=== PATIENT | female | born 1960 | race Caucasian/White ===

== ENCOUNTER 2019-12-01 01:54 | Day surgery (SDC) | payer BC, SELFPAY ==
[2019-12-01 08:51] VITALS: BP 126/63; PULSE 64; RESP 20; TEMP 36.6; O2SAT 96; BMI 29.7
[2019-12-01 09:25] LABS: Glucose Point of Care 146 (65-105)
--- NOTE | 2019-12-01 09:28 | PM.HPGS ---
History of Present Illness History of Present Illness Consent: Risks, benefits, and alternatives have been discussed and questions answered. Patient agrees to proceed with procedure. Chief complaint: Neoplasm Screening Narrative: Tammi Swartz is a 58 year old female With family history of colon cancer Meds Home Medications and Allergies Home Medications Medication Instructions Recorded Confirmed Type amlodipine 2.5 mg PO QAM 11/24/19 11/24/19 History aspirin [Aspir-81] 81 mg PO DAILY 11/24/19 11/24/19 History cyclobenzaprine 5 mg PO BID PRN 11/24/19 11/24/19 History furosemide 40 mg PO QAM 11/24/19 11/24/19 History glipizide 10 mg PO BID 11/24/19 11/24/19 History insulin aspart U-100 [Novolog 17 unit SUBCUT TID 11/24/19 11/24/19 History Flexpen U-100 Insulin] insulin glargine [Lantus Solostar 35 unit SUBCUT BID 11/24/19 11/24/19 History U-100 Insulin] [id number] 1 cap PO DAILY 11/24/19 11/24/19 History [krill oil] lorazepam 0.5 mg PO BID PRN 11/24/19 11/24/19 History losartan 50 mg PO QAM 11/24/19 11/24/19 History metformin 1,000 mg PO BID 11/24/19 11/24/19 History methyldopa 500 mg PO TID 11/24/19 11/24/19 History metoprolol tartrate 50 mg PO BID 11/24/19 11/24/19 History potassium chloride 10 meq PO QAM 11/24/19 11/24/19 History pravastatin 40 mg PO HS 11/24/19 11/24/19 History zinc acetate 25 mg PO DAILY 11/24/19 11/24/19 History Allergies Allergy/AdvReac Type Severity Reaction Status Date / Time Cantaloupe Allergy Mild SCRATCHY Uncoded 12/01/19 09:08 THROAT HONEYDEW Allergy Mild SCRATCHY Uncoded 12/01/19 09:08 THROAT Vital Signs Vital Signs - 24 hr 12/01/19 08:51 Temperature 36.6 C Pulse Rate 64 Respiratory Rate 20 Blood Pressure 126/63 Pulse Oximetry 96 Exam Resp: Auscultation: clear to auscultation bilaterally Cardio: Rate: regular rate Rhythm: regular rhythm GI: GI Palp: Yes Soft to palpation and No Tenderness to palpation present (GI) Assessment and Plan Assessment and plan (1) Family history of colon cancer: Code(s): Z80.0 - Family history of malignant neoplasm of digestive organs Status: Acute
--- NOTE | 2019-12-01 09:34 | WPDANESEPPF ---
Anes - Initial Pre Proc Eval Procedure: Operation Date: 12/01/19 10:00 Proposed Procedures p Screening Colonoscopy - Markus Radford MD Date/Time: 12/01/19 09:34 Surgeon: Markus Radford MD Pre Op Diagnosis: Neoplasm Screening Patient Data Age: 58 Gender: F Height: 1.6 m Weight: 76.2 kg Last Vital Signs Temp 36.6 C 12/01/19 08:51 Pulse 64 12/01/19 08:51 Resp 20 12/01/19 08:51 BP 126/63 12/01/19 08:51 Pulse Ox 96 12/01/19 08:51 Allergies Allergy/AdvReac Type Severity Reaction Status Date / Time Cantaloupe Allergy Mild SCRATCHY Uncoded 12/01/19 09:08 THROAT HONEYDEW Allergy Mild SCRATCHY Uncoded 12/01/19 09:08 THROAT Home Medications Medication Instructions Recorded Confirmed Type amlodipine 2.5 mg PO QAM 11/24/19 11/24/19 History aspirin [Aspir-81] 81 mg PO DAILY 11/24/19 11/24/19 History cyclobenzaprine 5 mg PO BID PRN 11/24/19 11/24/19 History furosemide 40 mg PO QAM 11/24/19 11/24/19 History glipizide 10 mg PO BID 11/24/19 11/24/19 History insulin aspart U-100 [Novolog 17 unit SUBCUT TID 11/24/19 11/24/19 History Flexpen U-100 Insulin] insulin glargine [Lantus Solostar 35 unit SUBCUT BID 11/24/19 11/24/19 History U-100 Insulin] [id number] 1 cap PO DAILY 11/24/19 11/24/19 History [krill oil] lorazepam 0.5 mg PO BID PRN 11/24/19 11/24/19 History losartan 50 mg PO QAM 11/24/19 11/24/19 History metformin 1,000 mg PO BID 11/24/19 11/24/19 History methyldopa 500 mg PO TID 11/24/19 11/24/19 History metoprolol tartrate 50 mg PO BID 11/24/19 11/24/19 History potassium chloride 10 meq PO QAM 11/24/19 11/24/19 History pravastatin 40 mg PO HS 11/24/19 11/24/19 History zinc acetate 25 mg PO DAILY 11/24/19 11/24/19 History Laboratory Tests 12/01/19 09:23 POC Capillary Glucose 146 mg/dl H mg/dl (65-105) Patient hx anesthesia problems: none Family hx anesthesia problems: none PMFSH Past Medical History Medical History (Updated 12/01/19 @ 09:37 by Felix Graves MD) Anxiety CAD (coronary artery disease) CHF (congestive heart failure) Diabetes HTN (hypertension) Hypercholesterolemia Surgical History Surgical History (Updated 12/01/19 @ 09:37 by Felix Graves MD) Hx of cardiac catheterization ANGIOPLASTY 2018 Hx of coronary artery bypass graft X2 VESSELS 2010 Anes - Eval Final PreProcedure Day of Procedure 12/01/19 09:34 Patient weight: overweight Heart: regular rate and rhythm Lungs: clear to auscultation and normal air movement Airway: Mallampati scale class II Neurological: alert and oriented Last oral intake: >/= 8 hours ASA classification: IV Emergent: no Anesthetic plan: proceed Anesthesia type and monitoring: general GIVS Informed Consent: The patient's anesthetic plan and its attendant risks and benefits were discussed with the patient/family/POA. Questions were solicited and answers provided to the satisfaction of the patient/family/POA.
[2019-12-01 10:16] VITALS: BP 93/49; PULSE 62; RESP 20; O2SAT 96
[2019-12-01] MEDS: LACTATED RINGERS 1,000 ML 150 ML IV CONT (10:23)
[2019-12-01 10:24] LABS: Glucose Point of Care 132 (65-105)
[2019-12-01 10:28] VITALS: BP 95/46; PULSE 67; RESP 23; O2SAT 94
[2019-12-01 10:38] VITALS: BP 90/48; PULSE 69; RESP 17; O2SAT 95
== END 2019-12-01 10:51 | disposition home or self-care (01) ==
PROVIDERS: Referring Provider Obstetrics & Gynecology Gynecology; Visit Provider Internal Medicine Gastroenterology
PROC: 0DJD8ZZ Inspection of Lower Intestinal Tract, Via Natural or Artificial Opening Endoscopic (ICD-10-PCS; CPT 45378; principal; 2019-12-01 10:00)
DX: Z12.11 Encounter for screening for malignant neoplasm of colon (principal); Z80.0 Family history of malignant neoplasm of digestive organs; I11.0 Hypertensive heart disease with heart failure; I50.9 Heart failure, unspecified; I25.10 Atherosclerotic heart disease of native coronary artery without angina pectoris; E78.00 Pure hypercholesterolemia, unspecified; E11.9 Type 2 diabetes mellitus without complications; F41.9 Anxiety disorder, unspecified; Z79.84 Long term (current) use of oral hypoglycemic drugs; Z79.4 Long term (current) use of insulin; Z79.82 Long term (current) use of aspirin; Z95.1 Presence of aortocoronary bypass graft
CPT/HCPCS: 45378; J7120

== ENCOUNTER 2021-05-04 00:49 | Day surgery (SDC) | payer OTHER, SELFPAY ==
[2021-04-27 16:47] VITALS: BMI 29.2
[2021-05-04 09:16] VITALS: BP 152/75; PULSE 62; RESP 20; TEMP 36.7; O2SAT 99
[2021-05-04] MEDS: ACETAMINOPHEN 500 MG TABLET 1000 MG PO (09:25)
[2021-05-04] MEDS: LACTATED RINGERS 1,000 ML 30 ML IV CONT (09:30)
[2021-05-04 10:04] LABS: Glucose Point of Care 157 mg/dl (65-105)
--- NOTE | 2021-05-04 10:08 | WPDANESEPPF ---
Anes - Initial Pre Proc Eval Procedure: Operation Date: 05/04/21 11:00 Proposed Procedures p Hysteroscopy Dilation and Curettage - Jennyfer Mccloud MD Date/Time: 05/04/21 10:08 Surgeon: Jennyfer Mccloud MD Pre Op Diagnosis: Post menopausal bleeding Patient Data Age: 60 Gender: F Height: 1.6 m Weight: 76.15 kg Last Vital Signs Temp 36.7 C 05/04/21 09:16 Pulse 62 05/04/21 09:16 Resp 20 05/04/21 09:16 BP 152/75 H 05/04/21 09:16 Pulse Ox 99 05/04/21 09:16 Allergies Allergy/AdvReac Type Severity Reaction Status Date / Time Cantaloupe Allergy Mild SCRATCHY Uncoded 04/27/21 17:26 THROAT HONEYDEW Allergy Mild SCRATCHY Uncoded 04/27/21 17:26 THROAT Home Medications Medication Instructions Recorded Confirmed Type Lantus Solostar U-100 Insulin 45 unit SUBCUT BID 11/24/19 05/04/21 History amlodipine 2.5 mg PO QAM 11/24/19 05/04/21 History aspirin [Aspir-81] 81 mg PO DAILY 11/24/19 05/04/21 History cyclobenzaprine 5 mg PO BID PRN 11/24/19 05/04/21 History furosemide 20 mg PO QAM 11/24/19 05/04/21 History insulin aspart U-100 [Novolog 17 unit SUBCUT TID 11/24/19 05/04/21 History Flexpen U-100 Insulin] [id number] 1 cap PO DAILY 11/24/19 05/04/21 History [krill oil] lorazepam 0.5 mg PO BID PRN 11/24/19 05/04/21 History losartan 50 mg PO QAM 11/24/19 05/04/21 History metformin 1,000 mg PO BID 11/24/19 05/04/21 History metoprolol tartrate 50 mg PO BID 11/24/19 05/04/21 History potassium chloride 10 meq PO QAM 11/24/19 05/04/21 History pravastatin 40 mg PO HS 11/24/19 05/04/21 History zinc acetate 25 mg PO DAILY 11/24/19 05/04/21 History Laboratory Tests 05/04/21 09:38 POC Capillary Glucose 157 mg/dl H mg/dl (65-105) Patient hx anesthesia problems: none Family hx anesthesia problems: none PMFSH Past Medical History Medical History Anxiety CAD (coronary artery disease) CHF (congestive heart failure) Diabetes HTN (hypertension) Hypercholesterolemia Surgical History Surgical History Hx of cardiac catheterization ANGIOPLASTY 2018 Hx of coronary artery bypass graft X2 VESSELS 2010 Social History Social History Smoking status: Never smoker Alcohol intake: never Substance use: never Substance use type: does not use Living arrangements: with family Gender identity (if verbalized by the patient): Female Sexual Orientation (if Verbalized by the Patient): Straight or Heterosexual Spiritual care concerns: No Anes - Eval Final PreProcedure Day of Procedure 05/04/21 10:08 Patient weight: overweight Heart: regular rate and rhythm Lungs: clear to auscultation Airway: Mallampati scale class II Neurological: alert and oriented Last oral intake: >/= 8 hours ASA classification: III Emergent: no Anesthetic plan: proceed Anesthesia type and monitoring: general GIVS and standard monitoring Informed Consent: The patient's anesthetic plan and its attendant risks and benefits were discussed with the patient/family/POA. Questions were solicited and answers provided to the satisfaction of the patient/family/POA.
--- NOTE | 2021-05-04 10:29 | PM.HPGS ---
History of Present Illness History of Present Illness Consent: Risks, benefits, and alternatives have been discussed and questions answered. Patient agrees to proceed with procedure. Chief complaint: Post menopausal bleeding Narrative: Tammi Swartz is a 60 year old female with postmenopausal bleeding and endometrium thickened at 14 mm. Recommend hysteroscopy with D&C. Risks of infection, bleeding, perforation, and possible pathology reviewed. Agrees to proceed. Review of Systems Review of Systems: Narrative: not repeated day of surgery; patient states no changes in status PMFSH Past Medical History Medical History Anxiety CAD (coronary artery disease) CHF (congestive heart failure) Diabetes HTN (hypertension) Hypercholesterolemia Surgical History Surgical History Hx of cardiac catheterization ANGIOPLASTY 2018 Hx of coronary artery bypass graft X2 VESSELS 2009 Social History Social History Smoking status: Never smoker Alcohol intake: never Substance use: never Substance use type: does not use Living arrangements: with family Gender identity (if verbalized by the patient): Female Sexual Orientation (if Verbalized by the Patient): Straight or Heterosexual Spiritual care concerns: No Meds Home Medications and Allergies Home Medications Medication Instructions Recorded Confirmed Type Lantus Solostar U-100 Insulin 45 unit SUBCUT BID 11/24/19 05/04/21 History amlodipine 2.5 mg PO QAM 11/24/19 05/04/21 History aspirin [Aspir-81] 81 mg PO DAILY 11/24/19 05/04/21 History cyclobenzaprine 5 mg PO BID PRN 11/24/19 05/04/21 History furosemide 20 mg PO QAM 11/24/19 05/04/21 History insulin aspart U-100 [Novolog 17 unit SUBCUT TID 11/24/19 05/04/21 History Flexpen U-100 Insulin] [id number] 1 cap PO DAILY 11/24/19 05/04/21 History [krill oil] lorazepam 0.5 mg PO BID PRN 11/24/19 05/04/21 History losartan 50 mg PO QAM 11/24/19 05/04/21 History metformin 1,000 mg PO BID 11/24/19 05/04/21 History metoprolol tartrate 50 mg PO BID 11/24/19 05/04/21 History potassium chloride 10 meq PO QAM 11/24/19 05/04/21 History pravastatin 40 mg PO HS 11/24/19 05/04/21 History zinc acetate 25 mg PO DAILY 11/24/19 05/04/21 History Allergies Allergy/AdvReac Type Severity Reaction Status Date / Time Cantaloupe Allergy Mild SCRATCHY Uncoded 04/27/21 17:26 THROAT HONEYDEW Allergy Mild SCRATCHY Uncoded 04/27/21 17:26 THROAT Vital Signs Vital Signs - 24 hr 05/04/21 09:16 Temperature 98.0 F Pulse Rate 62 Respiratory Rate 20 Blood Pressure 152/75 H Pulse Oximetry 99 Exam Const: General: comfortable and no acute distress Resp: Effort & Inspection: normal respiratory effort : External Female Exam: normal external appearance Speculum Exam - Vagina: normal appearance of the vagina Speculum Exam - Cervix: normal appearance of the cervix Bimanual exam- vagina & uterus: normal bimanual exam Bimanual Exam- Adnexa, other: normal adnexae Assessment and Plan Assessment and plan (1) Post-menopausal bleeding: Code(s): N95.0 - Postmenopausal bleeding Status: Acute Assessment and Plan: plan to proceed with hysteroscopy with D&C medical clearance obtained
--- NOTE | 2021-05-04 10:33 | WPDHPUPDATE1 ---
History and Physical Update Update Date/Time: 05/04/21 10:33 History and Physical has been reviewed, including an updated exam of the patient. There are NO changes in the patient's condition. Risks, benefits, and alternatives have been discussed and questions answered. Patient agrees to proceed with procedure.
--- NOTE | 2021-05-04 11:16 | W.PM.PROC2 ---
Procedure Note - Detailed Date of Procedure 05/04/21 Pre-op Diagnosis Post menopausal bleeding Post-op Diagnosis same Procedure Performed D and C hysteroscopy with MyoSure resection Surgeon Jennyfer Mccloud MD Anesthesia MAC Findings cervix is stenotic; uterus sounds to 8cm; there are 2 large polyps the smaller is very vascular and calcified the larger is smooth and fills the entire upper cavity ; the remainder of the endometrium appears atrophic Description of Procedure the patient was taken to the operating room and placed under anesthesia in the dorsal lithotomy position and she is prepped and draped in the usual sterile fashion. the cervix was noted to be stenotic and the os Finders are used. The uterus is sounded to 8cm. The cervix is serially dilated with Hegars. The diagnostic hysteroscope was placed with the above-stated findings. The MyoSure device is opened and placed under direct visualization both polyps are removed in their entirety. the hysteroscope was removed and the medium sharp curette used with minimal material obtained. All instruments are removed. Sponge, needle, and instrument counts are correct per the OR staff. Estimated Blood Loss 5 Drains No Packing No Pathology yes ( Endometrial curettings and shavings) Complications No immediate complications Condition stable Disposition PACU
[2021-05-04] MEDS: KETOROLAC 30 MG/ML VIAL (*BKC) 15 MG IV PUSH (11:18)
[2021-05-04 11:25] VITALS: BP 122/65; PULSE 58; RESP 15; O2SAT 98
[2021-05-04 11:43] LABS: Glucose Point of Care 141 mg/dl (65-105)
[2021-05-04 12:00] VITALS: BP 89/51; PULSE 47; RESP 16
[2021-05-04 12:30] VITALS: BP 107/58; PULSE 50; RESP 18
[2021-05-04 13:00] VITALS: BP 121/54; PULSE 55; RESP 18
--- NOTE | 2021-05-04 13:55 | SUR.PHASEII ---
1200; PT RETURNED FROM RESTROOM, PT SLIGHTLY UNSTEADY. C/O CRAMPING AT 6-7/10. BACK TO ROOM, IN RECLINER. ABDOMEN SOFT, SM AMT VAG FLOW TO PERIPAD. SBP 90-. IVF INCREASED. 1225; PT AWAKE AND ALERT. STATES CRAMPING MUCH BETTER NOW AT 3/10 AND TOLERABLE. PT EATING CRACKERS AND DRINKING DIET WHITE SODA. SPOUSE AT BEDSIDE. 1300; PT AWAKE AND ALERT. STATES MILD CRAMPING, TOLERABLE. READY TO GO HOME. MEETS DISCHARGE CRITERIA.
== END 2021-05-04 13:20 | disposition home or self-care (01) ==
PROVIDERS: Visit Provider Obstetrics & Gynecology Gynecology
PROC: 0U5B8ZZ Destruction of Endometrium, Via Natural or Artificial Opening Endoscopic (ICD-10-PCS; CPT 58563; principal; 2021-05-04 11:00)
DX: N95.0 Postmenopausal bleeding (principal); N84.0 Polyp of corpus uteri; F41.9 Anxiety disorder, unspecified; I25.10 Atherosclerotic heart disease of native coronary artery without angina pectoris; I11.0 Hypertensive heart disease with heart failure; I50.9 Heart failure, unspecified; E78.00 Pure hypercholesterolemia, unspecified; E11.9 Type 2 diabetes mellitus without complications; Z95.1 Presence of aortocoronary bypass graft; Z79.82 Long term (current) use of aspirin; Z79.4 Long term (current) use of insulin
CPT/HCPCS: 58558; 82948; 88305; A9270; J1885; J2250; J2704; J3010; J7030; J7120

== ENCOUNTER 2021-07-09 09:42 | Outpatient (CLI) | payer OTHER, SELFPAY ==
--- NOTE | ~2021-07-09 | MR_ITS ---
EXAMINATION: MR pelvis wo/w con INDICATION: Adnexal mass with increase in size TECHNIQUE: Coronal SSFSE ARC, Coronal, Axial, and Sagittal T2 FRFSE small [id number]-lo-[id number], Coronal 2D F IESTA FatSat, Axial SSFSE BH ARC, Axial 3D DualEcho BH, Axial STIR, Axial DWI b=500, pre and dynamic postcontrast Axial LAVA ARC COMPARISON: None available CONTRAST: Multihance, 15 cc FINDINGS: There is a 6.1 x 4.5 cm cystic lesion of the right adnexa. No peripheral nodularity or abno rmal internal enhancement is identified. The left ovary is unremarkable in appearance. There are no p athologically enlarged pelvic lymph nodes. No dilated loops of bowel are identified. A small cystocel e is noted. The visualized osseous structures are unremarkable The gallbladder is mildly distended. IMPRESSION: 1. Right adnexal cyst measuring up to 6.1 cm. In the absence of available prior imaging to assess for interval change, sonographic follow-up would be recommended in one year based on this examination. 2. Small cystocele. 3. Mild gallbladder distention, likely due to fasting state. Correlate for right upper quadrant pain. Reviewed, dictated and finalized at location A. IMPRESSION: 1. Right adnexal cyst measuring up to 6.1 cm. In the absence of available prior imaging to assess for interval change, sonographic follow-up would be recommen ded in one year based on this examination. 2. Small cystocele. 3. Mild gallbladder distention, likely due to fasting state. Correlate for righ t upper quadrant pain.
[2021-07-09 10:25] LABS: Estimated Glomerular Filt Rate > 60
== END 2021-07-09 09:43 | disposition home or self-care (01) ==
LOC: ANHIMG 09:46
PROVIDERS: Visit Provider Obstetrics & Gynecology Gynecology
DX: R93.5 Abnormal findings on diagnostic imaging of other abdominal regions, including retroperitoneum (principal); N83.8 Other noninflammatory disorders of ovary, fallopian tube and broad ligament; N81.10 Cystocele, unspecified; R93.3 Abnormal findings on diagnostic imaging of other parts of digestive tract
CPT/HCPCS: 72197; A9577

== ENCOUNTER 2025-09-05 00:11 | Day surgery (SDC) | payer OTHER, MEDICARE, SELFPAY ==
--- OUTSIDE RECORDS SUMMARY | 2020-05-11 23:00 | XMS_ITS | Encounter Summary ---
Author Organization [facility] Healthcare Address [address] [place] [id number] Care Team Providers Care Prehemmer Name Role Phone Unavailable Primary Care Provider Unavailabl e Reason for Visit * Diagnostic Imaging (Routine) - Closed Specialty Diagnoses / Procedures Referred By Contac t Referred To Contact Procedures Breast Imaging Screening Outside Reference Aft, Laureen Fofana MD PhD [address] [place] [id number] Phone: tel: fax: Referral ID Status Reason Start Date Expiration Date Visits Re quested Visits Authorized [id number] Closed 02/24/2024 03/25/2025 1 1 Encounter Details Date Type Department Care Team (Late st Contact Info) Description 05/12/2020 Hospital Encounter [facility] [address] [place] [phone] Social History Tobacco Use Types Packs/Day Years Used Date Smoking Tobacco: Never Smokeless Tobacco: Never AUDIT-C Answer Date Recorded Q1: How often do you have a drink containing alc ohol? Monthly or less 06/15/2024 Q2: How many drinks containi ng alcohol do you have on a typical day when you are drinking? 1 or 2 06/15/2024 Q3: How often do you have si x or more drinks on one occasion? Never 06/15/2024 Personal Safety Answer Date Recorded Have you ever been in or are you currently in a harmful physical or emotional relationship or is someone making you feel afraid or unsafe? Denies 06/15/2024 Comments Unknown Sex and Gender Information Value Date Recorded Sex Assigned at Not on file Legal Sex Female 4:20 PM CDT Gender Identity Not on file Sexual Orientation Not on file documented as of this encounter Functional Status * Difference in Last Two Carlton Scores Answer Date of Assessment Author 0 06/15/2024 5:05 PM CDT Olivia Dumont RN * Question Answer Date of Assessment Author MAP (mmHg) 81 06/15/2024 6:10 PM CDT Taryn Dumont RN * Luis Fall Risk Question Answer Date of Assessment Author History of Falling 0 06/15/2024 5:17 PM CDT Taryn Dumont RN Secondary Diagnosis 0 06/15/2024 5:17 PM Taryn Finch RN Ambulatory Aids 0 06/15/2024 5:17 PM CDT Taryn Starkey ams, RN Intravenous Therapy/Heparin/Saline Lock 20 06/15/2024 5:17 PM CDT Olivia Dumont RN Gait/Transferring 0 06/15/2024 5:17 PM CDT Taryn Dumont RN Mental Status 0 06/15/2024 5:17 PM CDT Taryn Karimi RN Luis Fall Risk Score (Score >= 45 places fall precaution order) 20 06/15/2024 5:17 PM ADAMT Taryn Dumont RN Prior Fall Event (Autopopulated from EMR) None found 06/15/2024 5:17 PM CDT Floridalma Dumont, KISHORE * Carlton Scale Question Answer Date of Assessment Author Sensory Perceptions 4 06/15/2024 5:05 PM Taryn Finch RN Moisture 4 06/15/2024 5:05 PM CDT Taryn Dumont RN Activity 3 06/15/2024 5:05 PM ADAMT Taryn Dumont RN Mobility 4 06/15/2024 5:05 PM ADAMT Taryn Dumont RN Nutrition 3 06/15/2024 5:05 PM ADAMT Taryn Dumont RN Friction and Shear 3 06/15/2024 5:05 PM ADAMT Taryn Dumont RN Carlton Scale Score 21 06/15/2024 5:05 PM Taryn Oakes RN * Fall Risk Interventions Question Answer Date of Assessment Author All Low Fall Interventions Applied Yes 06/15/2024 5:17 PM Taryn Oakes RN All Moderate Fall Interventions Applied No 06/15/2024 5:17 PM Taryn Oakes RN All Moderate Fall Risk Interventions EXCEPT: Gait belt at bedside;PT eval requested or obtained;OT eval requested or obtained 06/15/2024 5:17 PM Taryn Oakes RN Reason For Exception(s) pacu 06/15/20 5:17 PM Taryn Oakes RN * Pressure Injury Prevention Question Answer Date of Assessment Author Pressure Ulcer Prevention Interventions Keep skin clean and dry (Sensory Perception/Moistur e) 06/15/2024 5:05 PM Taryn Oakes RN * AUDIT-C Score Answer Date of Assessment Author 1 06/15/2024 8:57 AM Kita Geronimo RN * Alcohol Use Question Answer Date of Assessment Author Q1: How often do you have a drink containing alcohol? Monthly or less 06/15/2024 8:57 AM Lucia Geronimo ra, RN Q2: How many drinks containing alcohol do you have on a typical day when you are drinking? 1 or 2 06/15/2024 8:57 AM Lucia Geronimo ra, RN Q3: How often do you have six or more drinks on one occasion? Never 06/15/2024 8:57 AM Lucia Geronimo ra, RN * Integumentary Question Answer Date of Assessment Author Skin Color Appropriate for ethnicity 06/15/2024 5:05 PM Taryn Oakes RN Skin Condition/Temp Warm;Dry 06/15/2024 5 :05 PM Taryn Oakes RN Skin Integrity Surgical incision 06/15/2024 5:0 5 PM Taryn Oakes RN Skin Turgor Non-tenting 06/15/2024 5:05 PM Taryn Oakes RN Integumentary Additional Assessments Yes-Carlton 06/15/2024 5:05 PM Taryn Oakes RN Integumentary (WDL) X 06/15/2024 5 :05 PM CDT Taryn Dumont RN Skin Location L breast 06/15/2024 5:05 PM CDT Taryn Dumont RN * Carlton Scale Question Answer Date of Assessment Author Carlton Scale Used Carlton 06/15/2024 8:59 AM CDT Kita Palmer RN * Fall Risk Interventions Question Answer Date of Assessment Author All Low Fall Interventions Applied Yes 06/15/2024 5:17 PM CDT Taryn Dumont RN All Moderate Fall Interventions Applied No 06/15/2024 5:17 PM ADAMT Taryn Dumont RN All Moderate Fall Risk Interventions EXCEPT: Gait belt at bedside;PT eval requested or obtained;OT eval requested or obtained 06/15/2024 5:17 PM ADAMT Taryn Dumont RN Reason For Exception(s) pacu 06/15/20 5:17 PM CDT Taryn Dumont RN * Assistive Devices Question Answer Date of Assessment Author Assistive Devices/DME Eyeglasses 06/03/2024 3:00 PM CDT Adelina Forrest RN * Question Answer Date of Assessment Author Bed In Lowest Position Yes 06/15/2024 5:03 PM ADAMT Taryn Dumont RN Bed Wheels Locked Yes 06/15/2024 5:03 PM ADAMT Taryn Dumont RN documented as of this encounter Mental Status * Question Answer Entry Date Author Level of Consciousness Drowsy;Lethargic 06/15/20 5:05 PM ADAMT Taryn Dumont RN Neuro (WDL) X 06/15/2024 5:05 PM CDT Taryn Dumont RN documented in this encounter Plan of Treatment Not on file documented as of this encounter Procedures Procedure Name Priority Date/Time Associated Diagnosis Comments BREAST IMAGING MG SCREENING OUTSIDE REFERENCE Routine 05/12/2020 12:00 AM CDT documented in this encounter Results * Breast Imaging Screening Outside Reference (05/12/2020 12:00 AM CDT) Impressions [facility] - 02/24/2024 3:38 PM CDT These images are for Reference purposes only and have not been reviewed by [facility]. There will be no report generated by a [facility] Radiologist. Narrative [facility] - 02/24/2024 3:38 PM CDT EXAMINATION: Images For Reference Purposes Only us Laureen Cox MD PhD IMG MAMMO PROCEDURES Final Result [facility] documented in this encounter Visit Diagnoses Not on filedocumented in this encounter
--- NOTE | 2025-08-29 13:14 | PC.NURSE ---
[facility] has started construction of its new state of the art ER which will open Spring 2026. With this, we anticipate parking may be a challenge for some our surgical patients and families. Parking spaces are limited but are available for all Surgical, obstetrics, and ER patients sharing this lot. If you arrive and find you are having a hard time finding a parking space, please note that we understand the challenges, please drive around the hospital and park near Hospital Entrance 1. When you enter this entrance, you can ask a volunteer to direct or take you back to the surgical waiting area to check in. We appreciate everyone?s understanding of these expected challenges while we build for your future. Report to the Outpatient Waiting Room, entrance under the green pavilion located off [address], at time __11:45 AM on date _09/05/25 . Planned Procedure Time: _1:45 PM .? Time changes happen often and if your time is changed the preop area will call you the afternoon before. - You and your visitor will be asked to self-screen and do not enter if you have any COVID symptoms. Please call surgeon if you need to reschedule. - A mask is optional within the hospital at this time. Patients may have clear liquids (water, carbonated beverages, clear teas, apple juice) until 3 hours prior to surgery( 10:45 AM) with a maximum of 20 ounces. - No food from midnight until time of surgery and no smoking, or chewing tobacco (or any form of nicotine). No chewing gum, candy or mints. Take only the following medications with a SIP of water on the morning of surgery: __DILTIAZEM, TAKE 1/2 OF AM INSULIN,ISOSORBIDE DO NOT STOP ANY OF YOUR OTHER PRESCRIPTION MEDICATIONS PRIOR TO SURGERY EXCEPT THE FOLLOWING Hold all vitamins and supplements for 3 days per anesthesiologist.LAST DOSE 09/01/25 Medications to discontinue per physician ____ELIQUIS PER DR JADE_PT TO CALL Please no make-up, nail khmer, hairspray, perfume, deodorant, or body powder the day of surgery.? No jewelry (including any body piercings) or valuables the day of surgery, leave them at home.? Please take a shower or bath the night before, or the morning of, surgery with an antibacterial soap.? Wear comfortable, loose fitting clothing.? Children are encouraged to wear pajamas. - Jewelry must be removed prior to entering the operating room.? Rings and piercings that are not removed may be cut off. - The hospital will not accept responsibility for valuables.? - Please leave all valuables, including medications, at home the day of surgery. If you are going home after surgery, a licensed cpr ambulance driver must drive you home.? - NO public transportation without another adult if you receive anesthesia. - We recommend that an adult stay with you for 24 hours following discharge. - We also recommend that you do not drive, make important decision, drink alcoholic beverages, or take any drugs that were not prescribed by your health care provider for at least 24 hours after your discharge time. Follow any additional instructions given to you from your surgeon. Telephone instructions given to __PATIENT and asked if any additional questions and then verbalized understanding. Patient advised to call surgeon office or pre surgery nurse liaison [phone] if any additional questions.
[2025-08-29 14:01] VITALS: BMI 30.7
--- OUTSIDE RECORDS SUMMARY | 2025-09-05 00:13 | XMS_ITS | Encounter Summary ---
Author Organization [facility] Address [address] [place] [address] Phone Care Team Providers Care Buffing Wheel Raker Name Role Phone Jennyfer Mccloud MD Unavailable [phone] Usha Coreas MD Primary Care Provider [phone] Encounter Details Date Type Department Care Team (Late st Contact Info) Description 03/02/2024 Orders Only [facility] Surgery [address] [facility] [address] Advanced [facility] 5th [place] [address] [place] [id number] Aft, Laureen Fofana MD PhD [address] [place] [address] Social History Tobacco Use Types Packs/Day Years Used Date Smoking Tobacco: Never Assessed Personal Safety Answer Date Recorded Getting School Help Needed Not on file 02/08 Comments Unknown Sex and Gender Information Value Date Recorded Sex Assigned at Not on file Legal Sex Female 4:20 PM CDT Gender Identity Not on file Sexual Orientation Not on file documented as of this encounter Plan of Treatment Not on file documented as of this encounter Visit Diagnoses Not on filedocumented in this encounter Care Teams Buffing Wheel Raker Relationship Specialty Start Date End Date Usha Coreas MD [address] [place] [id number] PCP - General Family Medicine 02/19/24 Jennyfer Mccloud MD [address] [place] [address] Referring Physician Gynecology 02/09/24 documented as of this encounter
--- OUTSIDE RECORDS SUMMARY | 2025-09-05 00:13 | XMS_ITS | Clinical Summary ---
Author Organization [facility] Address [address] [place] [id number] Care Team Providers Care Spare Hand Carding Name Role Phone Jennyfer Mccloud MD Unavailable [phone] Usha Coreas MD Primary Care Provider [phone] Allergies Active Allergy Reactions Criticality Noted Date Comments Lisinopril Cough Low 04/06/2021 Other Unknown 12/19/2017 [place] Medications KRILL OIL ORALIndications: supplement Take 300 mg by mouth supply specialist before breakfast Active zinc gluconate 50 mg tabletIndication s:supplement Take 1 tablet (50 mg total) by mouth supply specialist before breakfast Active nitroglycerin (NITROSTAT) 0.[address] 1 tablet (0.4 mg total) under the tongue every 5 (five) minutes as needed 2 Active dilTIAZem (CARDIZEM) 60 mg tabletIndication s:hypertension Take 1 tablet (60 mg total) by mouth supply specialist before breakfast Active metoprolol XL (TOPROL-XL) 100 mg 24 hr tabletIndication s:hypertension Take 1 tablet (100 mg total) by mouth supply specialist before breakfast Active isosorbide mononitrate ER (IMDUR) 60 mg 24 hr tabletIndication s:prevention of anginal pain in coronary artery disease Take 1 tablet (60 mg total) by mouth supply specialist before breakfast 4 Active furosemide (LASIX) 20 mg tabletIndication s:hypertension Take 1 tablet (20 mg total) by mouth supply specialist before breakfast Active Jardiance 10 mg tabletIndication s:type 2 diabetes mellitus Take 2.5 tablets (25 mg total) by mouth supply specialist before breakfast 4 Active Dexcom G6 Sensor device USE TO TEST BLOOD SUGAR. CHANGE EVERY 10 DAYS 4 Active Dexcom G6 Transmitter device as directed 4 Active losartan (COZAAR) 100 mg tabletIndication s:hypertension Take 1 tablet (100 mg total) by mouth supply specialist before breakfast Active metFORMIN (GLUCOPHAGE) 500 mg tabletIndication s:type 2 diabetes mellitus Take 2 tablets (1,000 mg total) by mouth 2 (two) times a day with meals Active potassium chloride ER 10 mEq CR tabletIndication s:hypokalemia prevention Take 1 tablet/capsule (10 mEq total) by mouth supply specialist before breakfast Active pravastatin (PRAVACHOL) 40 mg tabletIndication s:hyperlipidemia Take 1 tablet (40 mg total) by mouth nightly Active NovoLOG 100 unit/mL (3 mL) pen for injectionIndicat ions:type 2 diabetes mellitus Inject 30 Units under the skin 3 (three) times a day with meals 4 Active fluticasone propionate (FLONASE) 50 mcg/actuation nasal sprayIndications :Allergic Conjunctivitis,A llergic Rhinitis Administer 1 spray into each nostril supply specialist before breakfast Active LANTUS 100 unit/mL (3 mL) pen for injectionIndicat ions:DM Inject 50 Units under the skin 2 (two) times a day 50 units in am & 55 units in pm Active Eliquis 5 mg tablet Take 1 tablet (5 mg total) by mouth 2 (two) times a day 4 Active oxyCODONE (ROXICODONE) 5 mg immediate release tabletIndication s:Pain Take 1 tablet (5 mg total) by mouth every 4 (four) hours as needed for pain 3 tablet 4 Active Active Problems Problem Noted Date Diagnosed Date Breast lesion on mammography 03/08/2024 Immunizations Immunization Administration Dates Next Due Influenza, Quadrivalent, Yakelin l Culture-based MDCK, Preservative Free, Antibiotic Free, Intramuscular 11/23/2017 Influenza, Quadrivalent, Rec ombinant, Egg Free, Preservative Free, Intramuscular 09/21/2019 Influenza, Quadrivalent, Spl it, Preservative Free, Intramuscular 09/19/2020,09/08/2018,08/17/2015 Pneumococcal Polysaccharide PPV23 05/12/2020 Surgical History Surgery Date Site/Laterality Comments OTHER SURGICAL HISTORY [facility] ;2021 ANGIOPLASTY 2015; in heart OTHER SURGICAL HISTORY 10/27/2009 - 10/26/2010 double bypass in heart; 2009 BIOPSY ankle;1993 BREAST BIOPSY 03/08/2024 Left BREAST BIOPSY 03/12/2024 Left Medical History Medical History Date Comments Hypertension Heart disease Diabetes PONV (postoperative nausea and vomiting) Family History Medical History Relation Name Comments Colon cancer Father Anesthesia problems Neg Hx Relation Name Status Comments Father Social History Tobacco Use Types Packs/Day Years Used Date Smoking Tobacco: Never Smokeless Tobacco: Never Tobacco Cessation:Counseling Given: Not Answered AUDIT-C Answer Date Recorded Q1: How often [...] on file Sexual Orientation Not on file Last Filed Vital Signs Vital Sign Reading Time Taken Comments Blood Pressure 140/63 06/15/2024 6:10 PM CDT Pulse 65 06/15/2024 6:10 PM CDT Temperature 36.1 C (97 F) 06/15/2024 5:50 PM CDT Respiratory Rate 18 06/15/2024 6:10 PM CDT Oxygen Saturation 94% 06/15/2024 6:10 PM CDT Inhaled Oxygen Concentration - - Weight 79.5 kg (175 lb 3.2 oz) 01/05/2025 11:27 AM CDT Height 160 cm (5' 3) 01/05/2025 11:27 AM CDT Body Mass Index 31.04 01/05/2025 11:27 AM CDT Plan of Treatment Health Maintenance Due Date Last Done Comments Breast Cancer Screening-Mammogram 1959 Cervical Cancer Screening 1959 Colon Cancer Screening-Colonoscopy 1959 Depression Screening 1959 Hepatitis C Screening 1959 Osteoporosis Screening-Bone Density Scan 1959 DTaP/Tdap/Td Vaccine (1 - Tdap) 1970 Hepatitis B Screening 1977 Zoster Vaccine (1 of 2) 2009 Pneumococcal vaccine 65+ (2 of 2 - PCV) 05/12/2021 05/12/2020 Well Visit 65+ 2024 Fall Risk Assessment 06/15/2025 06/15/2024 Covid-19 Vaccine (5 - 2024-2 6 season) 2025 12/19/2022, 09/17/2021, 02/02/2021, Additional history exists Influenza Vaccine (#1) 2025 , 09/21/2019, 09/08/2018, Additional history exists Medical Devices Implanted Type Area Stacker Attendant Device Identifier Shelf Expiration Date Model / Serial / Lot Bard Peripheral Vascular Ultraclip Bard 17ga 10cm 2 Trigger Permanent Ultrasound [id number] - [id number] Implanted:Qty: 1 on 03/08/2024 by Juana Dc MD at [facility] Left: Breast Bard Peripheral Vascular [id number] / / [employer] Trimark Mri Guided Rigid Deployment Device Cork Marker Breast Trimark Td 13-Mr - [id number] Implanted:Qty: 1 on 03/12/2024 at [facility] Left: Breast [employer] [id number] 12/02/2024 TRIMARK TD 13-MR / / [id number] Bard Peripheral Vascular Ghiatas 20ga 20cm 9cm Beaded Needle Breast Wire Localization [id number] - [id number] Implanted:Qty: 1 on 06/15/2024 at [facility] Left: Breast Bard Peripheral Vascular [id number] / / Bard Peripheral Vascular Ghiatas 20ga 20cm 9cm Beaded Needle Breast Wire Localization 34645 - [id number] Implanted:Qty: 1 on 06/15/2024 at [facility] Left: Breast Bard Peripheral Vascular [id number] / / Insurance [facility] [employer] [facility] [employer] Care Teams Spare Hand Carding Relationship Specialty Start Date End Date Usha Coreas MD [address] [address] PCP - General Family Medicine 02/19/24 Jennyfer Mccloud MD [address] [place] [address] Referring Physician Gynecology 02/09/24
--- OUTSIDE RECORDS SUMMARY | 2025-09-05 00:14 | XMS_ITS | Data Portability ---
Author Organization [facility], [address] Neurology ([place]) Address [address] 4th [place] [address] Care Team Providers Care Spinner Frame Name Role Phone LUBA ELIZALDE Primary Care Provider DANIAL MCDANIEL Point Of Care Technician Assessment Encounter Date Assessment Date Assessment LastModified by Organization Details LastModified Time 03/02/2025 03/02/2025 Ms. Swartz has PMH of : -HTN, HLD, IDDM II -CAD s/p CABG x2 VIA STERNOTOMY by Dr. Jean-Baptiste (12/2009) -Significant single vessel CAD, consult w/ Dr. Jean-Baptiste (12/2009), Double vessel CAD (03/2010), LAD 100%, LCx 100%, SVG to OM patent, MALDONADO to LAD patent (12/2011), Intervention; MALDONADO to LAD patent, SVG to OM patent. Mid graft had ectasia (11/2014), CAD s/p PCI MALDONADO to LAD patent, SVG to OM insertion site 99% disease, Severe SVG to OM disease treated by PCI (05/2017), Last intervention (12/2022) -LVEF 50% mild thickening of mitral ritu leaflets, mild MR, inferior vena cava shows >50% collapse with respiration consistent with normal right atrial pressure (02/2022) -AFib on Eliquis and diltiazem O ther clinical history significant for: chronic depression, diabetic peripheral neuropathy, steatotic liver disease S ocial history: , retired, never a smoker This visit: Patient presents for follow-up visit. She is accompanied by her . She has been experiencing episodes of chest tightness with exertion and emotional stress. She also has concerns regarding shortness of breath. She has no edema. She has had a couple episodes of heart racing with high blood pressure at home. She has NYHA class II shortness of breath on exertion and decreased exercise tolerance. Last visit: (saw SA 08/2024) The patient is here for follow-up visit. She is accomapined by her . She has diagnosis of breast ca and has undergone lumpetomy and planning for radiation. C ardiovascular studies summary: Echocardiogram: 02/2022 Est LVEF is 50-55%. LV diastolic function is abnormal (grade 2-pseudonormal pattern. RV systolic function is normal. Mild thickening of mitral valve leaflets. Mild mitral regurgitation. Inferior vena cava shows >50% collapse with respiration consistent with normal right atrial pressure. C ardiac Cath: 12/2022 LVEDP was normal. 99% pLAD, 100% mLAD with patent MALDONADO to LAD Moderate LCx and OM disease with occluded SVG to OM 50% mRCA with 40% RPL2 disease. S tress Echo: 11/2022 Moderate risk of ischemia. High exercise tolerance with symptoms. There is hypokinesis of the apical septal wall. There is hypokinesis of the mid inferoseptum wall. There is hypokinesis of the basal inferoseptum wall. There is hypokinesis of the basal inferior wall. There is hypokinesis of the mid inferior wall. The left ventricular chamber size was unchanged at peak stress. LV dilation The Ejection Fraction estimate at peak exercise is 50-55%. The patient exercised for 12 min. and 00 sec. using the Modified Asher protocol. Pt c/o chest pressure with exercise, which resolved self in recovery. At peak exercise, the pt exhibited ST depression 1.5 mm in leads II,III, AVF and ST depression 1.0 mm in V5-V6. A ssessment and plan: # CAD s/p CABG with chest tightness with exertion Obtain Lexiscan Cardiolite stress test. She does not technically have a full left bundle branch block on EKG but she has LBBB-oid characteristics that may make a DSE difficult to interpret -She is unable to tolerate a treadmill due to lower extremity joint pain 12/2022 LVEDP was normal. 99% pLAD, 100% mLAD with patent MALDONADO to LAD Moderate LCx and OM disease with occluded SVG to OM 50% mRCA with 40% RPL2 disease C ontinue with eliquis; not taking asa - Increase isosorbide mononitrate to 90 mg daily Discussed ER precautions. Patient and family had the opportunity to ask questions. They verbalized understanding of the plan and intent to comply.. # [Paroxsymal] Atrial Fibrillation: - CHADSVASC score of [>2] - [Asymptomatic] - [LVEF = 50] - Continue On [Eliquis 5 mg bid]; [no prior major bleeding] - AFib on Eliquis and diltiazem - denies lh/dizzines # H yperlipidemia - LDL was 20 11/2024 - Patient experienced an episode of myalgias - LDL is well below goal. we can decrease pravastatin to 20 mg daily # Hypertension M onitor BP at home once daily at random times for a week and then once weekly and bring record to next visit. - Occasional elevated readings at home. Continue current medications while increasing isosorbide as above Lifestyle modification counselling: -Advised about weight management with changes in diet and increasing exercise. Follow-up depends on diagnostic results of tests R OS: 12-point systems reviews was performed and negative with the exception of as noted in HPI P hysical Exam: T he patient was examined in the clinic. G en: appears well with no acute distress H EENT: JAMES, MMM, no thyromegaly, no palor, no JVD Cardiovascular: S1S2, RRR, 2/6 pansystolic murmur, PPP, no pedal edema Resp: non-labored breathing, clear to auscultation bilaterally Abdomen: Bowel sounds normal, non-tender Neuro: A*O*3, no gross motor or sensory dysfunction in any of the four extremities Skin: No rash, no cyanosis, no clubbing ---- I have personally spent a total of 40 minutes or more [id number] time with the patient and/or family/caregiver, reviewing pertinent testing, laboratory data, obtaining and/or reviewing separately obtained history, performing a medically appropriate examination and/or evaluation, counseling and educating the patient/family/car egiver, ordering medications, tests or procedures, documenting clinical information, independently interpreting results and communicating results to the patient/family/car egiver, and/or referring and communicating with other healthcare professionals on the day of this encounter. Not available 03/02/2025 11:42:45 03/31/2025 03/31/2025 1. Overall, the patient s chronic medical problems are currently stable. Healthy lifestyle was encouraged, including low glycemic/low processed food diet and regular exercise. We will get fasting blood work to be done at their convenience notify of results when available. Medications can be refilled as needed. 2. The patient continues to follow with her specialists including GI and cardiology. Today, her A1c was 6.7%. We are very happy with this. The Jardiance has been giving her a few side effects but not a consistent yeast infection, so we will provide her fluconazole to use as needed if they do occur. 3. Done with her radiation treatment for breast cancer. 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 Otherwise, we will follow up with the patient in six months or of course sooner as needed. [email or web address] Not available 03/31/2025 12:23:59 05/04/2025 05/04/2025 Mrs. Swartz has PMH of : -HTN, HLD, IDDM II -CAD s/p CABG x2 VIA STERNOTOMY by Dr. Jean-Baptitse (12/2009) -Significant single vessel CAD, consult w/ Dr. Jean-Baptiste (12/2009), Double vessel CAD (03/2010), LAD 100%, LCx 100%, SVG to OM patent, MALDONADO to LAD patent (12/2011), Intervention; MALDONADO to LAD patent, SVG to OM patent. Mid graft had ectasia (11/2014), CAD s/p PCI MALDONADO to LAD patent, SVG to OM insertion site 99% disease, Severe SVG to OM disease treated by PCI (05/2017), Last intervention (12/2022) -LVEF 50% mild thickening of mitral ritu leaflets, mild MR, inferior vena cava shows >50% collapse with respiration consistent with normal right atrial pressure (02/2022) -AFib on Eliquis and diltiazem O ther clinical history significant for: chronic depression, diabetic peripheral neuropathy, steatotic liver disease S ocial history: , retired, never a smoker This visit: Patient presents for a follow up visit after undergoing left heart catheterization for abnormal perfusion study and chest tightness. She underwent a left heart cath and no intervention was performed. Left radial site is clean dry and intact. Patient denies chest tightness or discomfort but she has not been exerting herself very much. She thinks that the increased dose of isosorbide has helped her. She does note some muscle weakness but is wondering if this is related to her diabetes. Last visit: (Saw Cheyenne 02/2025) Patient presents for follow-up visit. She is accompanied by her . She has been experiencing episodes of chest tightness with exertion and emotional stress. She also has concerns regarding shortness of breath. She has no edema. She has had a couple episodes of heart racing with high blood pressure at home. She has NYHA class II shortness of breath on exertion and decreased exercise tolerance. C ardiovascular studies summary: Echocardiogram: 02/2022 Est LVEF is 50-55%. LV diastolic function is abnormal (grade 2-pseudonormal pattern. RV systolic function is normal. Mild thickening of mitral valve leaflets. Mild mitral regurgitation. Inferior vena cava shows >50% collapse with respiration consistent with normal right atrial pressure. C ardiac Cath: 03/2025 >>>>> Nuclear Lexiscan: 03/2025 Abnormal perfusion study. LV function abnormal. Lexiscan nuclear cardiac stress test positive for myocardial scar (prior infarct). in the apical anterior wall(s). in the anterior wall(s). The defect is medium in size. The defect is mild in intensity. Mild LV systolic dysfunction. This is a moderate-risk study. The specificity of anterior wall perfusion defect in women with prior LBBB is low. A ssessment and plan: # CAD s/p CABG - Patient had an abnormal stress test and underwent cath March 2025 -no intervention was performed. Recommendation was medical management and diet lifestyle modification -Reviewed preliminary results of cath with patient as final report was not available. Left radial site is clean dry and intact -Discussed increasing aerobic activity and dietary modifications to reduce weight - Continue with eliquis; not taking asa - Continue isosorbide mononitrate 90 mg daily. If she continues to have anginal symptoms we can increase this to 220 mg daily as blood pressure allows # [Paroxsymal] Atrial Fibrillation: - CHADSVASC score of [>2] - [Asymptomatic] - [LVEF = 50] - Continue On [Eliquis 5 mg bid]; [no prior major bleeding] - AFib on Eliquis and diltiazem # H yperlipidemia - LDL was 20 11/2024 - Patient experienced an episode of myalgias - LDL is well below goal. Pravastatin was reduced to 20 mg daily at last visit # Hypertension M onitor BP at home once daily at random times for a week and then once weekly and bring record to next visit. - Continue current medications Follow up: 6 months Lifestyle modification counselling: -Advised about weight management with changes in diet and increasing exercise. R OS: 12-point systems reviews was performed and negative with the exception of as noted in HPI P hysical Exam: T he patient was examined in the clinic. G en: appears well with no acute distress H EENT: JAMES, MMM, no thyromegaly, no palor, no JVD Cardiovascular: S1S2, RRR, 2/6 pansystolic murmur, PPP, no pedal edema Resp: non-labored breathing, clear to auscultation bilaterally Abdomen: Bowel sounds normal, non-tender Neuro: A*O*3, no gross motor or sensory dysfunction in any of the four extremities Skin: No rash, no cyanosis, no clubbing, left radial site is clean dry intact Not available 05/04/2025 11:08:26 07/05/2025 07/05/2025 Went over shaquille mcmullen colon cancer screening guidelines with the patient in detail. Given the age of her father at the time of diagnosis, she is having no lower GI issues which would prompt colonoscopy examination, I told her it would be fine to wait to the latter portion of 2029 to get this colonoscopy examination scheduled. Reasons for this were explained to her given the age of her father at the time of diagnosis, etc. However I did tell her given that, it sounds like the provider that did the last colonoscopy recommended she stay on a 5-year plan we certainly could get 1 scheduled for her at this time. However I did tell her if she does not have any adenomatous colonic polyps noted with this examination, given current guidelines, Dr. Cole would tell her 10-year follow-up screening recommendation. After some discussion she wishes to hold off at this time scheduling this. I did tell her if at some point she wishes to change her mind about this, told her just to call my office here we can get this scheduled for her over the phone and mail all pertinent information to her home at that time. She appeared to be perfectly fine with our plan and discussion at this time. We also at least be contacting her around August 2030 to get this colonoscopy set up. [email or web address] Not available 07/05/2025 14:26:47 07/20/2025 07/20/2025 1. Muffled heari ng / Cerumen accumulation, bilateral; Left tympanostomy tube in place and patent - Cerumen removed under microscopic guidance today (focus on left; right ear assessed and TM intact without effusion) - If hearing does not improve, schedule formal hearing test at next visit - If symptoms worsen before then, call to arrange earlier hearing test - Follow up in 6 months; appointment to be scheduled at checkout [email or web address] Not available 07/20/2025 13:57:53 Plan of Treatment Reminders Order Date Submit Date Provider Last Modified By Organization Details Last Modified Time Details Appointments Establish ed Patient 20.EST 2024 10:20A M Dr. Luba Elizalde Not available Not available Not available Establish ed Patient 15.EST 2024 03:00P M Dr. Danial Mcdaniel Not available Not available Not available Establish ed Patient 30.EST 2025 11:00A M Natividad Vasquez Not available Not available Not available Establish ed Patient 15.EST 2025 11:30A M Meena Jordan Not available Not available Not available New Patient Visit 15.NEW 2025 10:00A M Dr. Irais Harmon Not available Not available Not available Lab hemoglobi n A1C, fingersti ck 2024 025 CHLOE [facility], [address] [place] [address], [address], 03/31/2025 12:39:25 Referral None recorded. Procedures None recorded. Surgeries None recorded. Imaging None recorded. Medication Orders pravastat in 40 mg tablet 2024 025 [email or web address] [facility] [place], [place] - [id number], [address], [place], [address], 09/02/2025 14:52:27 losartan 100 mg tablet 2024 025 GASTON [facility] [place] - [id number], [address], [place], [address], 08/10/2025 17:42:30 potassium chloride ER 10 mEq capsule,e xtended release 2024 025 [email or web address] [facility] [id number], [address], [place], [address], 09/02/2025 14:51:52 diltiazem 60 mg tablet 2024 025 GASTON [facility] [id number], [address] [place], [address], 03/31/2025 12:39:48 fluconazo le 150 mg tablet 2024 025 [email or web address] [facility] - [id number], [address], [place], [address], 07/05/2025 14:28:29 Jardiance 25 mg tablet 2024 025 GASTON [facility] - [id number], [address] [place], [address], 08/10/2025 17:42:28 metformin 500 mg tablet 2024 025 GASTON [facility] [place] - [id number], [address] [place], [address], 08/10/2025 17:42:29 Patient TargetsNo targets recorded. Patient InstructionsNo instructions recorded. Reason for Referral None Reported. Results Created Date Observation Date Name Description Value Unit Range Abnormal Flag Note LastModifiedBy Organization Detail LastModifiedTime 03/31/2003/31/2025 hemog lobin A1c, QN, blood fingerstick A1C endo Not Available [facility] [address] [place] [address], [address], 03/31/2025 12:39:25 03/31/20 25 03/31/2025 hemog lobin A1c, QN, blood hemoglobin A1C, finger 6.5 %_A1C 4.3 - 5.6 high Not Available [facility] [address] [place] [address], [address], 03/31/2025 12:39:25 03/31/20 25 03/31/2025 hemog lobin A1c, QN, blood fingerstick estimated ave [address] Not Available [facility] [address] [place] [address], [address], 03/31/2025 12:39:25 02/22/20 25 04/12/2021 imagi ng/di agnos tic resul t No observ ation record ed. [email or web address] Not Available 20:35:50 03/02/20 25 03/02/2025 elect rocar diogr am, routi ne ECG, 12 leads min No observ ation record ed. INTERFACE [facility] [address] [address], [place], [address], 03/02/2025 10:59:34 03/07/20 25 03/02/2025 elect rocar diogr am, routi ne ECG, 12 leads min No observ ation record ed. INTERFACE [facility] [address] [address], [place], [address], 03/07/2025 23:22:36 04/05/20 25 03/29/2025 femi bee [facility] [address] [place] [address] Ph: [phone] [email or web address] Nuclea r Lexisc an Report Name: Mouna VALLEJO Study Date: 2024 : 1960 7313 Gender : Female Age: 64 yrs BMI: 30.8 Orderi ng Physic mallory: Cheyenne Coombs Reason For Study: Chest Tightn ess R07.89 Patien t Locati on: CARDIO LOGY CONCLU LEVY: Abnorm al perfus ion study. LV functi on abnorm al. Lexisc an nuclea r cardia c stress test positi ve for myocar dial scar (prior infarc t). in the apical anteri or wall(s ). in the anteri or wall(s ). The defect is medium in size. The defect is mild in intens ity. Mild LV systol ic dysfun ction. This is a modera te-ris k study. The specif icity of anteri or wall perfus ion defect in women with prior LBBB is low. DISCUS SED: Proced ure: Inform ed consen t was discus sed and obtain ed. An explan ation of the proced ure was provid ed.The risks and benefi ts of the proced ure, the risks and benefi ts of altern ative proced ures, as well as the possib le conseq uences of not underg oing the. proced ure were discus sed. Patien t verbal ized unders marquez g and gives consen t to procee d. INJECT ION INFO: One day Lexisc an Myovie w Stress Test Ordere d by Enrike Hunter. MY OVIEW REST INJECT ION DATE : 03/29/20. Res ting Dose: 9.[address] inject ion time: 11:10. Res t dose inject ed by : Ti m Hemsto ck. Re st inject ion site: IV RIGHT ARM. CAROL VIEW STRESS INJECT ION DATE: 03/29/20. St ress dose: 29.[address] ress inject ion time: 12:05. Str ess dose inject ed by : De idre Orris. St ress inject ion site: IV RIGHT ARM. Pha rmaceu tical: Lexisc an, 400mcg , inject ed IV RIGHT ARM. Sup ervise d by: NEVAEH. Pha rmaceu tical: Aminop hyllin e, 75mg, inject ed at 12:12. Ami nophyl line inject ed by: Abbie lima RN. Ami mophyl line inject ion site:* IV RIGHT ARM. Deandre iscan lot# and expira tion: lot [id number] 07/22 [facility] [id number]. Ami nophyl line lot# and expira tion: lot [id number] exp 04/20 [facility] [id number]. INDICA TIONS: A 64 year old female . Chest Tightn ess R07.89 . EXAM TYPE: A single day Lexisc an Myovie w stress test was perfor med. After inform ed consen t was obtain ed, the patien t was inject ed at rest with 9.7 mCi of tc-99m Myovie w. Spect tomogr aphic imagin g was perfor med 45 minute s post restin g inject ion. The patien t was then inject ed with 400 mcg of IV lexisc an over 10 second s. Thirty second s after lexisc an inject ion the patien t was inject ed intrav enousl y with 29.4mC i of techne tium 99-m Myovie w. This was follow ed by gated tomogr aphic imagin g of the heart 45 minute s post stress inject ion. The patien t was sittin g during the Lexisc an infusi on. Stress test perfor med by : Abbie lima RN. The patien t was revers ed with Aminop hyllin e. (See above for dose and time). ECG: BAS MELYSSA ECG . Normal baseli ne electr ocardi ogram. STRESS RESPON SE:. There was no new ST segmen t depres levy. STRESS FINDIN GS: monito ring. There was no ST wall depres levy. No chest pain. No compli cation s. EKG return ed to [facility]. All sympto ms resolv ed in recove ry. Patien t exhibi avinash no arrhyt hmia. At peak exerci se, there was no furthe r ST wall depres levy over [facility] ne. LV: The LV EF is calcul ated at 45%. Stress Result s Maximu m Predic avinash HR: 155 bpm Target HR: 132 bpm % Maximu m Predic avinash HR: 62 % Durati onHear t Rate Stage (mm:ss ) (bpm) BP Commen t Restin g 71 150/70 Lexisc an 2:00 96 164/68 RPP 15,744 1:00 92 / R 1:00 92 146/64 1:00 81 / 1:00 82 / 1:00 82 156/70 Stress Durati on: 6:00 mm:ss Recove ry Time: 1:00 mm:ss Maximu m Stress HR: 96 bpm Electr onical ly signed by:Roberta naylor MD 2024 06:04 AM cc: Mouna Vallejo 2024 NM CARDIO LOGY STRESS TEST hprindle [facility] [address] [place] [address], [address], 04/06/2025 11:40:10 04/15/20 maria alejandra can cardi olite stres s test (PROC ) No observ ation record ed. BARCODE Not Available 2024 12:05:11 04/28/20 25 06/05/2018 imagi ng/di agnos tic resul t No observ ation record ed. [email or web address] Not Available 0 04/28/2025 21:53:28 04/28/20 25 10/07/2019 imagi ng/di agnos tic resul t No observ ation record ed. [email or web address] Not Available 0 04/28/2025 21:53:33 Result Notes Documentation Provider Name and Address Organization Details Recorded Time Nuclear Stress Test : [facility] [address] [place], [place] [address] [email or web address] Nuclear Lexiscan Report Name: Tammi SWARTZ Study Date: 03/29/2025 : 1960 Gender: Female Age: 64 yrs BMI: 30.8 Ordering Physician: Cheyenne Zendejas Reason For Study: Chest Tightness R07.89 Patient Location: CARDIOLOGY CONCLUSION: Abnormal perfusion study. LV function abnormal. Lexiscan nuclear cardiac stress test positive for myocardial scar (prior infarct). in the apical anterior wall(s). in the anterior wall(s). The defect is medium in size. The defect is mild in intensity. Mild LV systolic dysfunction. This is a moderate-risk study. The specificity of anterior wall perfusion defect in women with prior LBBB is low. DISCUSSED: Procedure: Informed consent was discussed and obtained. An explanation of the procedure was provided.The risks and benefits of the procedure, the risks and benefits of alternative procedures, as well as the possible consequences of not undergoing the. procedure were discussed. Patient verbalized understanding and gives consent to proceed. INJECTION INFO: One day Lexiscan Myoview Stress Test Ordered by Enrike ZENDEJAS. MYOVIEW REST INJECTION DATE : 03/29/2025. Resting Dose: 9.7 mCi. Rest injection time: 11:10. Rest dose injected by : Rigo Hussein. Rest injection site: IV RIGHT ARM. MYOVIEW STRESS INJECTION DATE: 03/29/2025. Stress dose: 29.4 mCi. Stress injection time: 12:05. Stress dose injected by : Maria R Boyce. Stress injection site: IV RIGHT ARM. Pharmaceutical: Lexiscan, 400mcg, injected IV RIGHT ARM. Supervised by: NEVAEH. Pharmaceutical: Aminophylline, 75mg, injected at 12:12. Aminophylline injected by: Abbie Christy RN. Amimophylline injection site:IV RIGHT ARM. Lexiscan lot# and expiration: lot [id number] 07/22 [facility] [id number]. Aminophylline lot# and expiration: lot [id number] 04/20 [facility] [id number]. INDICATIONS: A 64 year old female. Chest Tightness R07.89. EXAM TYPE: A single day Lexiscan Myoview stress test was performed. After informed consent was obtained, the patient was injected at rest with 9.7 mCi of tc-99m Myoview. Spect tomographic imaging was performed 45 minutes post resting injection. The patient was then injected with 400 mcg of IV lexiscan over 10 seconds. Thirty seconds after lexiscan injection the patient was injected intravenously with 29.4mCi of technetium 99-m Myoview. This was followed by gated tomographic imaging of the heart 45 minutes post stress injection. The patient was sitting during the Lexiscan infusion. Stress test performed by : Abbie Christy RN. The patient was reversed with Aminophylline. (See above for dose and time). ECG: BASELINE ECG. Normal baseline electrocardiogram. STRESS RESPONSE:. There was no new ST segment depression. STRESS FINDINGS: monitoring. There was no ST wall depression. No chest pain. No complications. EKG returned to baseline. All symptoms resolved in recovery. Patient exhibited no arrhythmia. At peak exercise, there was no further ST wall depression over baseline. LV: The LV EF is calculated at 45%. Stress Results Maximum Predicted HR: 155 bpm Target HR: 132 bpm % Maximum Predicted HR: 62 % DurationHeart Rate Stage (mm:ss) (bpm) BP Comment Resting 71 150/70 Lexiscan 2:00 96 164/68RPP 15,744 1:00 92 / R 1:00 92 146/64 1:00 81 / 1:00 82 / 1:00 82 156/70 Stress Duration: 6:00 mm:ss Recovery Time: 1:00 mm:ss Maximum Stress HR: 96 bpm Electronically signed by:Danial Mcdaniel MD 04/05/2025 06:04 AM cc: Tammi Swartz 03/29/2025 [place] CARDIOLOGY STRESS TEST Tammy Parra [facility] 04/06/2025 11:40:10 Problems Name Problem SNOMED Code Status Onset Date Resolution Date Notes Provider Name and Address Organization Details Recorded Time Atrial fibrillat ion 80286463 Active 2023 follows with cardiolog y Luba Elizalde MD [address] [place] [address], [place], [address], [facility] 4 14:19:52 Coronary arteriosc lerosis 93613462 Active 2023 s/p CABG Elizabeth Brambila null, [facility] 5 09:57:41 Mixed hyperlipi demia 288732515 Active 2023 Luba Elizalde MD [address] [place] [address], [address], [facility] 4 14:19:57 Diabetic periphera l neuropath y 910773777 Active 2023 Luba Elizalde MD [facility] [place] [address], [address], [facility] 4 14:20:08 Cyst of ovary 86061708 Active 2023 follows with obgyn hospitalist physician Luba Elizalde MD [facility] [place] [address], [address], [facility] 4 14:20:27 Enzyme level - finding 628056424 Active 2023 follows with GI Luba Elizalde MD [facility] [place] [address], [address], [facility] 4 14:20:39 Dysfuncti on of eustachia n tube 20646649 Active 2023 Luba Elizalde MD [address] [place] [address], [address], [facility] 4 14:20:49 Chronic depressio n 021289667 Active 2023 Luba Elizalde MD [address] [place] [address], [address], [facility] 4 14:20:58 Uncontrol led type 2 diabetes mellitus 012663025 Active 2023 Luba Elizalde MD [address] [place] [address], [address], [facility] 4 14:21:20 Essential hypertens ion 14728877 Active 2023 Luba Elizalde MD [address] [place] [address], [address], [facility] 4 14:22:22 History of malignant neoplasm of breast 524627314 Active 2023 Luba Elizalde MD [address] [place] [address], [address], [facility] 4 14:22:32 Candidias is of [facility] 99219311 Active 2023 Luba Elizalde MD [address] [place] [address], [address], [facility] 4 15:09:43 Multi vessel coronary artery disease 764488752 Active 2024 Elizabeth Brambila [facility] 5 09:57:11 Steatotic liver disease 674271160 Active 2024 Marzena Bernabe [facility] 5 10:35:31 Tight chest 73296599 Active 2024 Leyla Sari [facility] 5 11:38:57 Paroxysma l atrial fibrillat ion 177412067 Active 2024 Patsy Bond [facility] 5 16:48:53 Hyperlipi demia 97868152 Active 2024 Patsy Bond [facility] 5 16:49:16 Type 2 diabetes mellitus 20929654 Active 2024 Luba Elizalde MD [address] [place] [address], [address], [facility] 5 12:15:31 Neuropath y due to type 2 diabetes mellitus 066274511176 106 Active 2024 Luba Elizalde MD [address] [place] [address], [address], [facility] 5 12:16:42 Impacted cerumen of bilateral ears 425134051622 9108 Active 2024 Meena Jordan APRN, DNP. [facility] [address] [place] [address], [address], [facility] 5 13:58:15 Problem Notes None recorded. Procedures Surgical History Date Name Laterality Status Provider Name and Address Organization Details Recorded Time 5 SC Fibroscan completed Flo Cole MD [address] [place] [address], [phone], [facility] 02/15/2025 14:43:40 3 myringotomy and insertion of tympanic ventilation tube completed Meena Jordan APRN, DNP. [facility] [address] [place] [address], [phone], [facility] 01/17/2025 11:38:38 Imaging Results None recorded. Procedure Notes None recorded. Medical Equipment None Reported. Allergies Allergen ID Allergen Name Allergen Category Reaction Reaction Severity Criticality Documentation Date Start Date Code Code System Note Provider Name and Address Organization Details Recorded Time 0189033 lisinopri l medicatio n cough Not available Not available 11/26/20232021 02604 RxNorm React ion: Cough ; Not Available [facility] 4 04:09:38 477132 [place] e allergeni c extract food,medi cation other Not available Not available 11/24/20232022 77958 7 RxNorm scrat fadi Wan [facility] 4 14:55:25 Medications Name Sig Start Date Stop Date Status Note LastModified by Organization Details LastModified Time metformin 500 mg tablet TAKE 2 TABLETS BY MOUTH TWO TIMES A DAY 2024 active Not Available Not Available Not Avai lable anastrozole 1 mg tablet TAKE 1 TABLET BY MOUTH EVERY DAY active Not Available Not Available No t Available potassium chloride ER 10 mEq capsule,ext ended release TAKE 1 CAPSULE BY MOUTH EVERY DAY 09/02 completed Not Available Not Available Not Available pravastatin 40 mg tablet TAKE 1 TABLET BY MOUTH EVERY DAY DIRECTED 09/02 completed Not Available Not Available Not Available fluconazole 150 mg tablet TAKE 1 TABLET NOW, THEN REPEAT IN 72 HOURS. 07/05 completed Not Available Not Available Not Available isosorbide mononitrate ER 30 mg tablet,exte nded release 24 hr TAKE 1 TABLET BY MOUTH EVERY DAY 09/08 completed Not Available Not Available Not Available metoprolol succinate ER 100 mg tablet,exte nded release 24 hr TAKE 1 TABLET BY MOUTH EVERY DAY active Not Available Not Available No t Available potassium chloride ER 10 mEq tablet,exte nded release TAKE 1 TABLET BY MOUTH EVERY DAY 2024 active Not Available Not Available Not Avai lable isosorbide mononitrate ER 60 mg tablet,exte nded release 24 hr TAKE 1 AND 1/2 TABLET BY MOUTH EVERY DAY active Not Available Not Available No t Available ofloxacin 0.3 % ear drops instill 3 DROPS in affected ear(s) TWO TIMES A DAY FOR 14 DAYS 09/30 completed Not Available Not Available Not Available pravastatin 20 mg tablet TAKE 1 TABLET BY MOUTH EVERY DAY active Not Available Not Available No t Available furosemide 20 mg tablet TAKE 1 TABLET BY MOUTH EVERY DAY active Not Available Not Available No t Available ergocalcife rol (vitamin D2) 1,250 mcg (50,000 unit) capsule TAKE 1 CAPSULE BY MOUTH every 7 DAYS FOR 8 WEEKS 09/30 completed Not Available Not Available Not Available losartan 100 mg tablet TAKE 1 TABLET BY MOUTH EVERY DAY 2024 active Not Available Not Available Not Avai lable diltiazem 60 mg tablet TAKE 1 TABLET BY MOUTH EVERY TWELVE HOURS active Not Available Not Available No t Available oxycodone 5 mg tablet 09/30 completed Not Available Not Available Not Available Novolog FlexPen U-100 Insulin aspart 100 unit/mL (3 mL) subcutaneou s Inject 30 units SUBCUTANE OUSLY before meals active Not Available Not Available No t Available Calcium 600 TAKE 2 TABS PO DAILY active Not Available Not Available No t Available dietary supplement zinc, krill oil active Not Available Not Available No t Available Vitamin D3 10 mcg (400 unit) capsule Take 2 capsules every day by oral route. active Not Available Not Available No t Available Lantus Solostar U-100 Insulin 100 unit/mL (3 mL) subcutaneou s pen Inject 50 units SUBCUTANE OUSLY EVERY MORNING and 55 units EVERY EVENING active Not Available Not Available No t Available Eliquis 5 mg tablet TAKE 1 TABLET BY MOUTH TWO TIMES A DAY active Not Available Not Available No t Available Jardiance 10 mg tablet TAKE 1 TABLET BY MOUTH ONCE DAILY 09/08 completed Not Available Not Available Not Available Jardiance 25 mg tablet TAKE 1 TABLET BY MOUTH EVERY DAY 2024 active Not Available Not Available Not Avai lable Dexcom G6 Sensor device USE TO TEST BLOOD SUGAR. CHANGE EVERY 10 DAYS active Not Available Not Available No t Available Dexcom G6 Transmitter device Use as directed by physician . active Not Available Not Available No t Available Vitals Date Recorded Body height Body mass index (BMI) Body weight Oxygen saturation Oxygen saturation in Arterial blood by Pulse oximetry Heart rate Systolic And Diastolic Provider Name and Address Organization Details Last Updated DateTime 5 160.02 cm 30.8 kg/m2 54185.0 7 g 97 % 97 % 70 /min 128/64 mm[Hg] Duane Hinton [facility] 5 10:52:46 Date Recorded Body height Body mass index (BMI) Body weight Body temperature Respiratory rate Oxygen saturation Oxygen saturation in Arterial blood by Pulse oximetry Heart rate Systolic And Diastolic Provider Name and Address Organization Details Last Updated DateTime 5 160.02 cm 30.7 kg/m2 23841.2 g 97.5 [degF] 18 /min 96 % 96 % 99 /min 132/58 mm[Hg] Rohini Wan [facility] 5 12:12:11 Date Recorded Body height Heart rate Oxygen saturation Oxygen saturation in Arterial blood by Pulse oximetry Body mass index (BMI) Body weight Systolic And Diastolic Provider Name and Address Organization Details Last Updated DateTime 5 160.02 cm 68 /min 99 % 99 % 30.7 kg/m2 58039.2 g 160/64 mm[Hg] Jennifer Jean-Baptiste [facility] 5 10:19:34 Date Recorded Body mass index (BMI) Body weight Systolic And Diastolic Provider Name and Address Organization Details Last Updated DateTime 07/05/2025 31 kg/m2 16894.66 g 140/80 mm[Hg] Joseph Parekh, MATERIALS RECYCLER, NUT PROCESSING SUPERVISOR [address] [place] [address], [phone], [facility] 07/05/2025 14:21:46 Date Recorded Body height Provider Name an d Address Organization Details Last Updated DateTime 07/05/2025 160.02 cm Yisel [facility] 07/05/2025 14:18:57 Social History None recorded. Functional Status None recorded. Mental Status None recorded. Family History Nothing Reported. Medical History No medical history recorded. Gynecological HistoryNo gynecological history recorded. Obstetrics History GPAL:G 0 P 0 0 0 0 Immunizations Vaccine Type Date Status Note Provider Nam e and Address Organization Details Recorded Time Influenza, MDCK, quadrivalent, PF 8 completed [facility] 09/30/2024 14:55:01 Influenza, recombinant, quadrivalent, PF 9 completed [facility] 09/30/2024 14:55:01 COVID-19, mRNA, LNP-S, PF, 100 mcg/0.5mL dose or 50 mcg/0.25mL dose 1 completed [facility] 09/30/2024 14:55:01 COVID-19, mRNA, LNP-S, PF, 100 mcg/0.5mL dose or 50 mcg/0.25mL dose 1 completed [facility] 09/30/2024 14:55:01 COVID-19, mRNA, LNP-S, PF, 100 mcg/0.5mL dose or 50 mcg/0.25mL dose 1 completed [facility] 09/30/2024 14:55:01 COVID-19, mRNA, LNP-S, bivalent, PF, 50 mcg/0.5 mL or 25mcg/0.25 mL dose 3 completed [facility] 09/30/2024 14:55:01 pneumococcal polysaccharide PPV23 0 completed Rohinimike Wan null, [facility] 09/30/2024 14:55:01 Influenza, split virus, quadrivalent, PF 5 [facility] 14:55:01 Influenza, split virus, quadrivalent, PF 8 completed Rohini Wan null, [facility] 09/30/2024 14:55:01 Influenza, split virus, quadrivalent, PF 0 completed Rohini Wan null, [facility] 09/30/2024 14:55:01 Tdap 4 completed Luba Elizalde MD [facility] [place] [address], [phone], [facility] 10/05/2024 09:33:49 Past Encounters Encounter ID Performer Location Encounter Start Date Encounter Closed Date Diagnosis/Indication Diagnosis SNOMED-CT Code Diagnosis ICD10 Code Diagnosis IMO Codes Diagnosis Note [id number] Meena Jordan, MATERIALS RECYCLER, DNP. NUT PROCESSING SUPERVISOR [facility] [place] [address] [place] [address] 07/19/2024 11:27:14 07/19/2024 11:50:22 Ventilation tube in tympanic membrane 302320780 Z96.22 Patient has a patent left PE tube in good position. No drainage noted. They will call if they need a refill on ear drops. If drainage is noted from the tubes they should start their drops and call for a follow up appointmen ayush hand s. Follow up in 6 months for a routine tube check. [id number] DANIAL MCDANIEL MD [address] [facility] ([place]) [address] [place] [address] 09/08/2024 16:21:58 09/08/2024 17:17:11 [id number] Luba Elizalde MD [facility] ([place]) [address] [place] [address] 09/30/2024 14:45:51 09/30/2024 15:28:23 History and physical examination, annual for health maintenance 19831086 Z00.00 [id number] Uncontroll ed type 2 diabetes mellitus 858662160 E11.65 62228192 Candidiasis of vagina 72 710238 B37.31 638227 fluconazol e Mixed hyperlipidemia 267 460182 E78.2 89471 Essential hypertension 78197091 I10 55476 Coronary arteriosclerosis 08339683 I25.10 Atrial fibrillation 4943 6004 I48.91 Chronic depression 18262 0009 F32.A 981837 Diabetic p eripheral neuropathy 757911559 E11.42 666190 Requires d iphtheria, tetanus and pertussis vaccination 897664327 Z23 124126 [id number] Meena Jordan, MATERIALS RECYCLER, DNP. NUT PROCESSING SUPERVISOR [address] [facility] ([place]) [address] [facility],[address] [place] [address] 01/17/2025 11:20:07 01/17/2025 12:49:34 History of tympanostomy 112185053 Z96.22 [id number] Patient has a patent left PE tube in good position. No drainage noted. They will call if they need a refill on ear drops. If drainage is noted from the tubes they should start their drops and call for a follow up appointmen ayush hand sCarlo Follow up in 6 months for a routine tube check. Physical examination 588 0005 Z04.89 3673690 [id number] Flo Cole MD [facility] 2nd Boards [address] [place] [address] 02/15/2025 14:20:55 02/15/2025 14:36:43 Steatotic liver disease 424993709 K76.0 565984 [id number] Flo Cole MD [facility] 2nd Gastroent erology ([place]) [address] [facility],[address] [place] [address] 02/15/2025 14:32:32 02/15/2025 15:18:31 Steatotic liver disease 453963647 K76.0 941876 [id number] CHEYENNE ZENDEJAS, LACE BURN OUT TENDER-C [facility] 3rd Cardiolog y ([place]) [address] [place] [address],3[place] [address] 03/02/2025 10:39:00 03/02/2025 15:20:18 Paroxysmal atrial fibrillation 604785551 I48.0 13567 Essential hypertension 93069392 I10 16889 Hyperlipidemia 78439198 E78.5 15215870 [id number] Luba Elizalde MD [facility] ([place]) [facility] [place] [address] 03/31/2025 12:01:37 03/31/2025 12:36:10 Candidiasis of vagina 79208758 B37.31 262824 Mixed hyperlipidemia 267 491884 E78.2 65262 Essential hypertension 25231605 I10 77312 Coronary arteriosclerosis 87674825 I25.10 Atrial fibrillation 4943 6004 I48.91 Chronic depression 09166 0009 F32.A 042325 Diabetic p eripheral neuropathy 423529775 E11.42 002496 Neuropathy due to type 2 diabetes mellitus 6799159152 84386 E11.40 Z79.4 55459624 Steatotic liver disease 486606239 K76.0 569989 History of malignant neoplasm of breast 161197598 Z85.3 851450 [id number] CHEYENNE ZENDEJAS, LACE BURN OUT TENDER-C [address] [place] [address] Cardiolog y ([place]) [address] [place] [address],[address] [place] [address] 05/04/2025 10:12:16 05/04/2025 16:11:49 Coronary arteriosclerosis 96791511 I25.10 3499 5718851 Paroxysmal atrial fibrillation 751957609 I48.0 36848 Hyperlipidemia 72684485 E78.5 85083672 Essential hypertension 70904568 I10 60976 [id number] Joseph Parekh, MATERIALS RECYCLER, NUT PROCESSING SUPERVISOR [facility] 2nd Gastroent erology ([place]) [address] [place] [address] 07/05/2025 13:58:24 07/05/2025 14:27:51 Screening for malignant neoplasm of colon 374083032 Z12.11 1930354 [id number] Meena Jordan APRN, DNP. NUT PROCESSING SUPERVISOR [facility] ([place]) [address] [place] [address] 07/20/2025 12:28:34 07/20/2025 13:38:33 History of tympanostomy 206495330 Z96.22 [id number] Patient has a patent left PE tube in good position. No drainage noted. They will call if they need a refill on ear drops. If drainage is noted from the tubes they should start their drops and call for a follow up appointmen ayush shelley precaution s. Follow up in 6 months for a routine tube check. Impacted c erumen of bilateral ears 6197122934 013737 H61.23 [id number] Health Concerns Section Related Observation LastModified by Organization Detai ls LastModified Time None Recorded Concern Status LastModified by Organization Details LastModified Time None Recorded Advance Directives Directive None Recorded Payers Insurance Date Sequence Insurance Name Policy Number Policy Herring Covered Member ID Herring Member ID Guarantor Name 09/02/2025 1 [employer] - [employer] [facility] [id number] Mirza Swartz [id number] Tammi Swartz 07/05/2025 [place] Tammi Guevaraning [id number] Tammi L Sheridan 07/05/2025 [place] Tammi Alvaro Sheridan [id number] Tammi Alvaro Sheridan 09/02/2025 2 [place] Tammi L Sheridan [id number] Tammi L Sheridan 07/05/2025 [place] - [facility] (MEDICARE) Tammi L Sheridan [id number] Tammi L Sheridan Notes Date Note Type Note Provider Name and Address Organization Details Recorded Time 03/31/2025 text/html The patient is here today for a routine six month visit. The patient denies any concerns, but will need medication refills. -mammogram: ANATOMIC PATHOLOGIST-bone density: ANATOMIC PATHOLOGIST-colonoscopy: due this year, she will schedule Luba Elizalde MD [address] [place] [address], [phone], [facility] 04/04/2025 11:29:46 07/05/2025 text/html 64-year-old woman here to discuss whether or not she is due for a colonoscopy for screening purposes. She has had previous colonoscopies done before somewhere out of town. Most recent colonoscopy she believes was done August or so, the latter portion of 2019 by a provider in [facility]. She tells me that this provider however has retired. She is fairly certain, quite certain, she never has been told with previous colonoscopies that she had adenomatous colonic polyps. I explained to her about the potential significance of these types of polyps. She is almost 100% certain she has never had these types of polyps or any polyps at all for that matter, with previous colonoscopy examinations. She has a family history of colon cancer in her father however he was at least age 75 maybe a little bit older. She also told me at the present time she is having no lower GI issues which would prompt colonoscopy examination. No hematochezia, changes in bowels, etc. Joseph Parekh APRN, NUT PROCESSING SUPERVISOR [address] [place] [address], [phone], [facility] 07/05/2025 14:27:08 07/20/2025 text/html Tammi Swartz is a 64-year-old female here for a 6-month recheck. She reports muffled hearing and frequently needing others to repeat themselves. She thought she might get a hearing test today. She has a history of a left ear tube placed on 09/10/2023 and wondered if it might have extruded. Visit focused on ear evaluation and wax management. Meena Jordan, ART, DNP. NUT PROCESSING SUPERVISOR [address] [place] [address], [phone], [facility] 07/20/2025 13:58:51 OBGyn Episode No OBEpisode recorded.
--- NOTE | 2025-09-05 07:59 | WPDHPUPDATE1 ---
History and Physical Update Update Date/Time: 09/05/25 07:59 History and Physical has been reviewed, including an updated exam of the patient. There are NO changes in the patient's condition. Risks, benefits, and alternatives have been discussed and questions answered. Patient agrees to proceed with procedure.
--- NOTE | 2025-09-05 07:59 | PM.HPGS ---
History of Present Illness History of Present Illness Consent: Risks, benefits, and alternatives have been discussed and questions answered. Patient agrees to proceed with procedure. Chief complaint: Thickened Endometrial Lining Narrative: Tammi Swartz is a 64 year old female with thickened endometrial bleeding at 9mm with no vaginal bleeding. It was recommended to undergo D&C hysteroscopy for further evaluation. Risks of infection, bleeding, perforation, and possible pathology are reviewed. Patient voices understanding and agrees to proceed. Review of Systems Review of Systems: not repeated day of surgery; patient states no changes in status [facility] Past Medical History Medical History (Updated 09/05/25 @ 08:04 by Jennyfer Mccloud MD) Fatty liver Atrial fibrillation Breast cancer, right Status post lumpectomy and radiation Anxiety Diabetes HTN (hypertension) Hypercholesterolemia CHF (congestive heart failure) CAD (coronary artery disease) Surgical History Surgical History (Updated 09/05/25 @ 08:03 by Jennyfer Mccloud MD) Status post right breast lumpectomy Hx of coronary artery bypass graft X2 VESSELS 2010 Hx of cardiac catheterization ANGIOPLASTY 2018 Social History Social History Smoking status: Never smoker Alcohol intake: never Substance use: never Substance use type: does not use Living arrangements: with family Gender identity (if verbalized by the patient): Female Sexual Orientation (if Verbalized by the Patient): Straight or Heterosexual Spiritual care concerns: No Meds Home Medications and Allergies Home Medications ?Medication ?Instructions ?Recorded ?Confirmed ?Type amlodipine 2.5 mg tablet 2.5 mg PO QAM 11/24/19 08/29/25 History aspirin 81 mg tablet,delayed 81 mg PO DAILY 11/24/19 08/29/25 History release (Aspir-) cyclobenzaprine 5 mg tablet 5 mg PO BID PRN Muscle Spasticity 11/24/19 08/29/25 History furosemide 40 mg tablet 20 mg PO QAM 11/24/19 08/29/25 History insulin aspart U-100 100 unit/mL 17 unit subcut TID 11/24/19 08/29/25 History (3 mL) subcutaneous pen (Novolog FlexPen U-100 Insulin aspart) insulin glargine 100 unit/mL (3 45 unit subcut BID 11/24/19 08/29/25 History mL) subcutaneous pen (Lantus Solostar U-100 Insulin) krill 1 cap PO DAILY 11/24/19 08/29/25 History [id number]-gynbzolqhyjtq 300 mg-90 mg-24 mg-50 mg capsule (krill oil) lorazepam 0.5 mg tablet 0.5 mg PO BID PRN Anxiety 11/24/19 08/29/25 History losartan 50 mg tablet 50 mg PO QAM 11/24/19 08/29/25 History metformin 500 mg tablet 1,000 mg PO BID 11/24/19 08/29/25 History metoprolol tartrate 50 mg tablet 50 mg PO BID 11/24/19 08/29/25 History potassium chloride 10 mEq 10 meq PO QAM 11/24/19 08/29/25 History tablet,extended release pravastatin 40 mg tablet 40 mg PO HS 11/24/19 08/29/25 History zinc acetate 25 mg (zinc) capsule 25 mg PO DAILY 11/24/19 08/29/25 History anastrozole 1 mg tablet 1 mg PO DAILY 08/29/25 08/29/25 History apixaban 5 mg tablet (Eliquis) 5 mg PO Q12H 08/29/25 08/29/25 History calcium carbonate (Calcium 600) 600 mg PO BID 08/29/25 08/29/25 History cholecalciferol (vitamin D3) 50 50 mcg PO DAILY 08/29/25 08/29/25 History mcg (2,000 unit) capsule diltiazem HCl 60 mg tablet 60 mg PO BID 08/29/25 08/29/25 History empagliflozin 25 mg tablet 25 mg PO DAILY 08/29/25 08/29/25 History (Jardiance) isosorbide mononitrate 60 mg 60 mg PO DAILY 08/29/25 08/29/25 History tablet,extended release 24 hr losartan 100 mg tablet 100 mg PO DAILY 08/29/25 08/29/25 History metoprolol succinate 100 mg 100 mg PO HS 08/29/25 08/29/25 History tablet,extended release 24 hr Allergies Allergy/AdvReac Type Severity Reaction Status Date / Time [place]aloupe Allergy Mild SCRATCHY Uncoded 04/27/21 17:26 THROAT HONEYDEW Allergy Mild SCRATCHY Uncoded 04/27/21 17:26 THROAT Exam Const: General: healthy appearing and alert Orientation/consciousness: patient oriented x3 Resp: Effort & Inspection: normal respiratory effort Auscultation: clear to auscultation bilaterally Cardio: Rate: regular rate Rhythm: regular rhythm GI: GI Palp: Yes Soft to palpation, No Tenderness to palpation present (GI) and No Palpable mass present : External Female Exam: normal external appearance Speculum Exam - Vagina: normal appearance of the vagina and normal vaginal discharge Speculum Exam - Cervix: normal appearance of the cervix Bimanual exam- vagina & uterus: uterine size normal and consistency normal Bimanual Exam- Adnexa, other: normal adnexae and No adnexal tenderness Neuro: General: patient oriented x3 Assessment and Plan Assessment and plan (1) Thickened endometrium: Code(s): R93.89 - Abnormal findings on diagnostic imaging of other specified body structures Status: Acute Assessment and Plan: Plan to proceed with D&C hysteroscopy
--- NOTE | 2025-09-05 12:13 | WPDANESEPPF ---
Anes - Initial Pre Proc Eval Procedure: Operation Date: 09/05/25 13:45 Proposed Procedures p Hysteroscopy Dilation and Curettage - Jennyfer Mccloud MD Date/Time: 09/05/25 12:13 Surgeon: Jennyfer Mccloud MD Pre Op Diagnosis: Thickened Endometrial Lining Patient Data Age: 64 Gender: F Height: 1.6 m Weight: 78.5 kg Allergies Allergy/AdvReac Type Severity Reaction Status Date / Time [place] Allergy Mild SCRATCHY Uncoded 04/27/21 17:26 THROAT HONEYDEW Allergy Mild SCRATCHY Uncoded 04/27/21 17:26 THROAT Home Medications ?Medication ?Instructions ?Recorded ?Confirmed ?Type amlodipine 2.5 mg tablet 2.5 mg PO QAM 11/24/19 08/29/25 History aspirin 81 mg tablet,delayed 81 mg PO DAILY 11/24/19 08/29/25 History release (Aspir-) cyclobenzaprine 5 mg tablet 5 mg PO BID PRN Muscle Spasticity 11/24/19 08/29/25 History furosemide 40 mg tablet 20 mg PO QAM 11/24/19 08/29/25 History insulin aspart U-100 100 unit/mL 17 unit subcut TID 11/24/19 08/29/25 History (3 mL) subcutaneous pen (Novolog FlexPen U-100 Insulin aspart) insulin glargine 100 unit/mL (3 45 unit subcut BID 11/24/19 08/29/25 History mL) subcutaneous pen (Lantus Solostar U-100 Insulin) krill 1 cap PO DAILY 11/24/19 08/29/25 History lqo-fw-8-esg-lxo-imeukisauhoyj 300 mg-90 mg-24 mg-50 mg capsule (krill oil) lorazepam 0.5 mg tablet 0.5 mg PO BID PRN Anxiety 11/24/19 08/29/25 History losartan 50 mg tablet 50 mg PO QAM 11/24/19 08/29/25 History metformin 500 mg tablet 1,000 mg PO BID 11/24/19 08/29/25 History metoprolol tartrate 50 mg tablet 50 mg PO BID 11/24/19 08/29/25 History potassium chloride 10 mEq 10 meq PO QAM 11/24/19 08/29/25 History tablet,extended release pravastatin 40 mg tablet 40 mg PO HS 11/24/19 08/29/25 History zinc acetate 25 mg (zinc) capsule 25 mg PO DAILY 11/24/19 08/29/25 History anastrozole 1 mg tablet 1 mg PO DAILY 08/29/25 08/29/25 History apixaban 5 mg tablet (Eliquis) 5 mg PO Q12H 08/29/25 08/29/25 History calcium carbonate (Calcium 600) 600 mg PO BID 08/29/25 08/29/25 History cholecalciferol (vitamin D3) 50 50 mcg PO DAILY 08/29/25 08/29/25 History mcg (2,000 unit) capsule diltiazem HCl 60 mg tablet 60 mg PO BID 08/29/25 08/29/25 History empagliflozin 25 mg tablet 25 mg PO DAILY 08/29/25 08/29/25 History (Jardiance) isosorbide mononitrate 60 mg 60 mg PO DAILY 08/29/25 08/29/25 History tablet,extended release 24 hr losartan 100 mg tablet 100 mg PO DAILY 08/29/25 08/29/25 History metoprolol succinate 100 mg 100 mg PO HS 08/29/25 08/29/25 History tablet,extended release 24 hr Patient hx anesthesia problems: none Family hx anesthesia problems: none Results Review: All pre-operative results and documents have been reviewed as part of the pre-operative evaluation. [facility] Past Medical History Medical History Fatty liver Atrial fibrillation Breast cancer, right Status post lumpectomy and radiation Anxiety Diabetes HTN (hypertension) Hypercholesterolemia CHF (congestive heart failure) CAD (coronary artery disease) Surgical History Surgical History Status post right breast lumpectomy Hx of coronary artery bypass graft X2 VESSELS 2010 Hx of cardiac catheterization ANGIOPLASTY 2018 Social History Social History Smoking status: Never smoker Alcohol intake: never Substance use: never Substance use type: does not use Living arrangements: with family Gender identity (if verbalized by the patient): Female Sexual Orientation (if Verbalized by the Patient): Straight or Heterosexual Spiritual care concerns: No Anes - Eval Final PreProcedure Day of Procedure 09/05/25 12:13 Patient weight: obese Heart: regular rate and rhythm Lungs: clear to auscultation Airway: Mallampati scale class II Neurological: alert and oriented Last oral intake: >/= 8 hours ASA classification: III Emergent: no Anesthetic plan: proceed Anesthesia type and monitoring: general GIVS and standard monitoring Results Review: All pre-operative results and documents have been reviewed as part of the pre-operative evaluation. Informed Consent: The patient's anesthetic plan and its attendant risks and benefits were discussed with the patient/family/POA. Questions were solicited and answers provided to the satisfaction of the patient/family/POA.
[2025-09-05] MEDS: ACETAMINOPHEN 500 MG TABLET 1000 MG PO (12:20)
[2025-09-05] MEDS: LACTATED RINGERS 1,000 ML 30 ML IV CONT (12:25)
[2025-09-05 12:36] VITALS: BP 139/58; PULSE 57; RESP 16; TEMP 36.3; O2SAT 97
--- NOTE | 2025-09-05 13:02 | S_PTH ---
PATIENT: Tammi Swartz LOC: [facility] U#:[id number] AGE/SX: 64/F ROOM: RE09/05/[address]: Jennyfer Mccloud MD : 1960 BED: DIS: 09/05/2025 SPEC #: [id number] RECD: 09/05/25 14:04 STATUS: LADONNA REQ #: [id number] OUMOU: 09/05/25 13:[address]: Jennyfer Mccloud DEPT: [facility] Surgical RECD BY: Liberty Sloan ENTERED: 09/05/25 14:05 SP TYPE: Surgical OTHR DR: Usha Coreas, Tissues: A - Endometrial Curettings Procedures: Hematoxylin and Eosin Stain Gross and Microscopic Level 4
[2025-09-05] MEDS: KETOROLAC 15 MG/ML VIAL (*BKC) IV PUSH (13:04)
[2025-09-05 13:10] VITALS: BP 105/41; PULSE 47; RESP 14; O2SAT 95
--- NOTE | 2025-09-05 13:10 | W.PM.PROC2 ---
Procedure Note - Detailed Date of Procedure 09/05/25 Pre-op Diagnosis Thickened Endometrial Lining Post-op Diagnosis Same Procedure Performed D&C hysteroscopy Surgeon Jennyfer Mccloud MD Anesthesia MAC Findings There is a third-degree cystocele. The uterus sounds to 7cm. There are multiple polyps and fibroids within the endometrial cavity the remainder appears atrophic. Description of Procedure The patient was taken to the operating room and placed under anesthesia in the dorsal lithotomy position. She was prepped and draped in the usual sterile fashion. [place] speculum was placed in the vagina and the cervix grasped on the anterior lip with tenaculum. The uterus is sounded to 7cm. The diagnostic hysteroscope was placed and with the above-stated findings the Flex Aveta resection device is placed and under direct visualization all endometrial lesions are removed. The hysteroscope is then removed. The endometrium was curetted with a sharp curette until a good uterine cry was noted in all areas. Instruments are removed. Sponge, needle, and instrument counts are correct per the OR staff. The patient was taken to recovery in stable condition. Estimated Blood Loss 5 Drains No Packing No Pathology Yes (Endometrial shavings and curettings) Complications No immediate complications Condition Stable Disposition PACU
[2025-09-05 13:40] VITALS: BP 120/47; PULSE 48; RESP 14; O2SAT 95
[2025-09-05] MEDS: oxyCODONE HCL (*CRX) 5 MG TAB IR PO (13:52)
[2025-09-05 14:10] VITALS: BP 113/41; PULSE 47; RESP 16
[2025-09-05 14:40] VITALS: BP 107/50; PULSE 49; RESP 16
[2025-09-05 14:51] VITALS: BP 108/55; PULSE 49; RESP 16
== END 2025-09-05 15:00 | disposition home or self-care (01) ==
PROVIDERS: PCP Family Medicine; Visit Provider Obstetrics & Gynecology Gynecology
PROC: 0U5B8ZZ Destruction of Endometrium, Via Natural or Artificial Opening Endoscopic (ICD-10-PCS; CPT 58563; principal; 2025-09-05 13:45)
DX: R93.89 Abnormal findings on diagnostic imaging of other specified body structures (principal); N84.0 Polyp of corpus uteri; D25.9 Leiomyoma of uterus, unspecified; N81.2 Incomplete uterovaginal prolapse; E11.9 Type 2 diabetes mellitus without complications; E78.00 Pure hypercholesterolemia, unspecified; I25.10 Atherosclerotic heart disease of native coronary artery without angina pectoris; I11.0 Hypertensive heart disease with heart failure; I50.9 Heart failure, unspecified; I48.91 Unspecified atrial fibrillation; F41.9 Anxiety disorder, unspecified; E66.9 Obesity, unspecified; Z68.31 Body mass index [BMI] 31.0-31.9, adult; Z79.82 Long term (current) use of aspirin; Z79.4 Long term (current) use of insulin; Z79.84 Long term (current) use of oral hypoglycemic drugs; Z79.01 Long term (current) use of anticoagulants; Z90.11 Acquired absence of right breast and nipple; Z95.1 Presence of aortocoronary bypass graft; Z98.61 Coronary angioplasty status; Z92.3 Personal history of irradiation; Z85.3 Personal history of malignant neoplasm of breast
CPT/HCPCS: 58558; 82948; 88305; A9270; J1885; J2003; J2250; J2405; J2704; J3010; J7120